=== PATIENT | male | born 1985 | race Caucasian/White ===

== ENCOUNTER → 2018-12-06 | Outpatient (CLI) | payer OTHER ==
--- NOTE | 2018-12-06 17:03 | RAD ---
RIBS RIGHT AND PA CHEST History: Right rib pain. Technique: PA view the chest and 3 additional views of the right ribs. Comparison: None. Findings: No consultation or pleural effusion. Normal heart size. No pneumothorax. Nondisplaced right anterior seventh rib fracture. Impression: 1. Nondisplaced right anterior seventh rib fracture. Electronically signed by: Roshan Garduno DO (12/06/2018 5:00 PM) [facility]
== END | disposition home or self-care (01) ==
LOC: PMG 09:54
PROVIDERS: ATTEND Physician Assistant
DX: S22.31XA Fracture of one rib, right side, initial encounter for closed fracture (principal); X58.XXXA Exposure to other specified factors, initial encounter; Y93.89 Activity, other specified; Y92.89 Other specified places as the place of occurrence of the external cause; Y99.8 Other external cause status
CPT/HCPCS: 71101